=== PATIENT | male | born 1975 | race Caucasian/White ===

== ENCOUNTER 2017-08-04 13:23 | Emergency (ER) | payer OTHER ==
[~2017-08-04] VITALS: Ht 182.9 cm; Wt 95.6 kg
[~2017-08-04 13:23] MED LIST: CEFDINIR300 MG; FLONASE16 GM; RANITIDINE HCL75 MG PO; ZESTRIL,PRINIVI10 MG PO
[2017-08-04 14:47] LABS: HEMATOCRIT 44.9 % (38.0-50.0); HEMOGLOBIN 15.4 G/DL (12.5-16.6); MCH 29.3 PG (29.0-34.0); MCHC 34.3 G/DL (30.0-36.0); MCV 85.4 FL (86-99); PLATELET COUNT 240 K/uL (156-360); RBC DIS.WIDTH-CV 12.2 % (11.8-14.6); RBC DIS.WIDTH-SD 38.3 % (39-53); RED BLOOD COUNT 5.26 M/uL (4.00-5.50)
[2017-08-04 14:56] LABS: CHLORIDE 106 mEq/L (99-109); POTASSIUM 4.1 mEq/L (3.7-5.4); SODIUM 140 mEq/L (136-147)
[2017-08-04 14:58] LABS: GLUCOSE 93 mg/dL (70-99)
[2017-08-04 15:01] LABS: CREATININE 0.9 mg/dL (0.6-1.3); GFR ESTIMATE (CALCULATED) > 59 mL/min/ (58.99-99999)
[2017-08-04 15:02] LABS: UREA NITROGEN (BUN) 13 mg/dL (9-23)
[2017-08-04] MEDS ORDERED: PROVENTIL,2.5 MG/3 M IH (15:59)
[2017-08-04] MEDS ORDERED: LEVAQUIN750 MG PO (15:59)
[2017-08-04 16:42] VITALS: BP 138/92
[2017-08-05] MEDS ORDERED: PRILOSEC20 MG PO (15:53)
[2017-08-05] MEDS ORDERED: MUCINEX1200 MG PO (15:54)
[2017-08-05] MEDS ORDERED: LEVAQUIN750 MG PO (18:13)
== END 2017-08-04 16:43 | disposition home or self-care (01) ==
LOC: EME 13:23
DX: J18.9 Pneumonia, unspecified organism (principal); J06.9 Acute upper respiratory infection, unspecified; Z88.1 Allergy status to other antibiotic agents
CPT/HCPCS: 80048; 85027; 99281; 99285

== ENCOUNTER 2017-08-05 14:38 | Emergency (ER) | payer OTHER ==
[~2017-08-05] VITALS: Ht 182.9 cm; Wt 93.9 kg
[~2017-08-05 14:38] MED LIST changes: +LEVAQUIN750 MG PO; +PROVENTIL,2.5 MG/3 M IH
[2017-08-05 15:28] LABS: BASOPHIL (%) 0.7 % (0-1); BASOPHIL COUNT 0.1 K/uL (0-0.1); EOSINOPHIL (%) 0.5 % (0-5); HEMATOCRIT 44.2 % (38.0-50.0); HEMOGLOBIN 15.2 G/DL (12.5-16.6); IMMATURE GRANULOCYTE (%) 1.9 % (0.0-0.7); LYMPHOCYTE (%) 20.1 % (15-42); LYMPHOCYTE COUNT 1.5 K/uL (1.0-2.8); MCH 29.1 PG (29.0-34.0); MCHC 34.4 G/DL (30.0-36.0); MCV 84.7 FL (86-99); MONOCYTE (%) 6.4 % (3-12); MONOCYTE COUNT 0.5 K/uL (0-0.8); NEUTROPHIL (%) 70.4 % (45-76); NEUTROPHIL COUNT 5.3 K/uL (1.8-6.4); PLATELET COUNT 273 K/uL (156-360); RBC DIS.WIDTH-CV 12.1 % (11.8-14.6); RBC DIS.WIDTH-SD 37.1 % (39-53); RED BLOOD COUNT 5.22 M/uL (4.00-5.50); WHITE BLOOD COUNT 7.5 K/uL (4.1-10.2)
[2017-08-05 15:39] LABS: ALBUMIN 4.1 g/dL (3.2-4.8); CHLORIDE 109 mEq/L (99-109); POTASSIUM 3.6 mEq/L (3.7-5.4); SODIUM 139 mEq/L (136-147)
[2017-08-05 15:40] LABS: MAGNESIUM 2.1 mg/dL (1.3-2.7)
[2017-08-05 15:42] LABS: TOTAL PROTEIN 7.9 g/dL (6.4-8.3)
[2017-08-05 15:44] LABS: TOTAL BILIRUBIN 0.4 mg/dL (0.0-1.0)
[2017-08-05 15:45] LABS: ALKALINE PHOSPHATASE 68 IU/L (3-129)
[2017-08-05 15:46] LABS: GFR ESTIMATE (CALCULATED) > 59 mL/min/ (58.99-99999)
[2017-08-05 15:47] LABS: AST (GOT) 22 IU/L (2-34); UREA NITROGEN (BUN) 14 mg/dL (9-23)
[2017-08-05 15:48] LABS: ALT (GPT) 39 IU/L (3-49)
[2017-08-05 15:51] LABS: GLUCOSE 143 mg/dL (70-99)
[2017-08-05 15:52] LABS: TROP-I INTERPRETATION NEGATIVE; TROPONIN-I < 0.01 ng/mL (0.0-0.30)
[2017-08-05] MEDS ORDERED: PRILOSEC20 MG PO (15:53)
[2017-08-05] MEDS ORDERED: MUCINEX1200 MG PO (15:54)
[2017-08-05] MEDS ORDERED: LEVAQUIN750 MG PO (18:13)
[2017-08-05 20:24] VITALS: BP 141/96
== END 2017-08-05 20:24 | disposition home or self-care (01) ==
LOC: EME 14:38
PROVIDERS: Emergency Medicine
DX: J18.9 Pneumonia, unspecified organism (principal); R00.0 Tachycardia, unspecified
CPT/HCPCS: 71275; 80053; 83605; 83735; 84484; 85025; 85379; 93005; 99281; 99284; J7030

== ENCOUNTER 2018-01-25 14:21 | Emergency (ER) | payer OTHER ==
[~2018-01-25] VITALS: Ht 182.9 cm; Wt 100.3 kg
[~2018-01-25 14:21] MED LIST changes: +MUCINEX1200 MG PO; +PRILOSEC20 MG PO
[2018-01-25 15:20] VITALS: BP 129/77
== END 2018-01-25 15:37 | disposition home or self-care (01) ==
LOC: EME 14:21
DX: S43.401A Unspecified sprain of right shoulder joint, initial encounter (principal); Z87.891 Personal history of nicotine dependence; Z88.1 Allergy status to other antibiotic agents
CPT/HCPCS: 73030; 99281; 99283